=== PATIENT | male | born 1970 | race Caucasian/White ===

== ENCOUNTER → 2024-12-21 13:03 | Outpatient (REF) | payer OTHER, SELFPAY | LOC: PAVMRI 13:03 | PROVIDERS: ATTENDING PHYSICIAN Psychiatry & Neurology Neurology; FAMILY PHYSICIAN Internal Medicine; REFERRING PHYSICIAN Radiology Diagnostic Radiology | DX: Z01.818 Encounter for other preprocedural examination (principal) | CPT/HCPCS: 70030; 70549; 70553; A9585 ==